=== PATIENT | male | born 1955 | race Caucasian/White ===

== ENCOUNTER → 2016-11-23 | Outpatient (CLI) | payer BC, OTHER ==
[~2016-11-23] VITALS: Ht 182.9 cm; Wt 111.6 kg
[~2016-11-23] MED LIST: ALEVE220 MG PO; AMARYL2 MG PO; APAP500 PO; ASPIR 8181 MG PO; COQ1050 MG PO; CYCLOBENZAPRINE10 MG PO; FLEXERIL PO; LIPITOR10 MG PO; NEURONTIN 300300 M1 PO; TRAMADOL 50 MG50 MG PO; ZYRTEC10 M4 PO
--- NOTE | ~2016-11-23 | HPC ---
[facility] [place] [address] PAIN MANAGEMENT CONSULTATION Name: FRANCISCA PORTER Room #: REG [facility].#: [id number] Admission: 11/23/16 Attend Phys: aSlvatore Garza DO Discharge: Date of : 59 Report #: [id number] THIS REPORT FOR: //name// CC: Neo Garza DATE OF SERVICE: 11/23/2016 REFERRING PHYSICIAN: Neo Mo MD CHIEF COMPLAINT: Low back pain, right lower extremity pain and paresthesias. HISTORY OF PRESENT ILLNESS: As you know, the patient is a very pleasant 61-year-old male who had an acute onset of low back pain, right lower extremity pain that began 11/13/2016. The patient denies injury or trauma that may have led to symptoms. He states the pain has intensified to such a degree that he is unable to go about his activities of daily living. He sought evaluation through his primary care physician, Dr. Neo Mo, who sent the patient for MRI of the lumbar spine, which showed significant changes at the L4-L5 level. He was then referred to the pain clinic for evaluation. The patient indicates pain is continuous, describes the pain as burning, shooting, throbbing, stabbing and tender, places current pain score at 7/10, daily average of 4-7/10, worst pain has been is 10/10. The patient states pain is exacerbated with standing, walking for any length of time, sitting also exacerbates symptoms. He indicates that reclining or repositioning appears to improve pain. He has been referred to our service to discuss treatment options for lumbar radiculopathy secondary to the displacement of a lumbar intervertebral disk. PAST MEDICAL HISTORY: 1. Seasonal allergies. 2. Dyslipidemia. 3. Diabetes mellitus type 2. PAST SURGICAL HISTORY: Tonsillectomy. SOCIAL HISTORY: The patient denies tobacco, IV or illicit drug use. Admits to three alcohol beverages per week. The patient is employed in sales. He is working, not receiving workmen's compensation nor is he trying to obtain disability benefits. He is accompanied by his who was present in room today. REVIEW OF SYSTEMS: Positive for fatigue, weakness, wearing corrective eyewear, numbness and tingling sensations in the right lower extremity, dyslipidemia, and diabetes mellitus type 2, non-insulin dependent. All other review of systems negative per 12-point review of systems other than those listed in the history [address] [address] PAIN MANAGEMENT CONSULTATION Name: FRANCISCA PORTER Room #: REG [facility]#: [id number] Admission: 11/23/16 Attend Phys: Salvatore Garza DO Discharge: Date of : 59 Report #: [id number] of present illness. Pain impact score 50/70 indicating moderate to severe interference of daily activities secondary to pain. ALLERGIES: HYDROCODONE. CURRENT MEDICATIONS: Naproxen 220 mg b.i.d., Tylenol Extra Strength 500 mg 4 times a day, cyclobenzaprine 10 mg once a day, cetirizine 10 mg once a day, aspirin 81 mg per day, Coenzyme Q 100 mg per day, atorvastatin 10 mg per day, Amaryl 2 mg per day, tramadol 50 mg 3 times a day. IMAGING: MRI of the lumbar spine obtained 11/17/2016 shows T12-L1, L1-L2, L2-L3, L3-L4 unremarkable, L4-L5 mild retrolisthesis of L4 and L5, posterior inferior disk with a large right subarticular disk extrusion extending caudally 1.4 cm inferiorly obliterating the right lateral recess at the L5 vertebral body, superimposed broad-based disk bulge with at least moderate narrowing of the left lateral recess, resulting in left L5 radiculopathy. No significant central canal stenosis. L5-S1 degenerative disk disease, facet arthropathy leading to mild to moderate left and moderate right neural foraminal narrowing. PHYSICAL EXAMINATION: VITAL SIGNS: Blood pressure 151/105, pulse 88, respiratory rate 16, unlabored. The patient is 96% on room air. Height 5 feet 11 inches tall, weight 246 pounds, BMI calculated 34.3. GENERAL: Well-developed, well-nourished, well-hydrated, 61-year-old male. He appears his stated age. He is placing current pain score at 7/10. HEENT: Normocephalic and atraumatic. Pupils equal, round, reactive to light. Extraocular muscles are intact. Sclerae nonicteric without injection. NEUROLOGIC: Cranial nerves 2-12 grossly intact. LUNGS: Clear. No wheeze, rhonchi or rales. No respiratory distress. EXTREMITIES: Show no clubbing, no cyanosis, no edema. MUSCULOSKELETAL: Seated straight leg raising positive. Supine straight leg raising positive. Gait is antalgic favoring right lower extremity over left. Stance slightly forward flexed to lumbar spine. Muscle bulk and tone equal and symmetrical in lower extremities. Intact to light touch from L1 through S2 dermatomes. ASSESSMENT: 1. Symptomatic lumbar radiculopathy. 2. Displacement of lumbar intervertebral disk with radiculopathy. 3. Lumbosacral spondylosis with radiculopathy. PLAN: 1. The patient has been referred to our service for evaluation for suspected lumbar radiculopathy. The patient and I spent approximately 20 minutes of time [address] [place] [address] PAIN MANAGEMENT CONSULTATION Name: FRANCISCA PORTER Room #: REG [facility]#: [id number] Admission: 11/23/16 Attend Phys: Salvatore Garza DO Discharge: Date of : 59 Report #: [id number] reviewing his MRI on how the findings on the MRI correlate to the patient's symptoms. We utilized mottling as well as digital visual aids to assist the patient in understanding the findings on his MRI. After this discussion of the MRI and the findings specifically the L4-L5 level, we discussed the treatment options that may provide improvement in symptoms for his lumbar radiculopathy secondary to the displacement of that disk at the L4-L5 level. We discussed the following with the patient today. We discussed with the patient treatment options for lumbar radiculopathy that would include physical therapy, stretching exercises, core strengthening as well as some myofascial release techniques. We discussed medication management with addition of a neuropathic pain medication, low dose opioid for pain control and a consistent nonsteroidal anti-inflammatory. We discussed lumbar epidural injections under fluoroscopic guidance, spinal cord stimulator therapy and surgical options. After reviewing the risks and benefits of all the proposed treatment options, the patient requested a lumbar epidural injection under fluoroscopic guidance to be performed. The patient was advised risks and benefits of a lumbar epidural injection. These risks include but are not necessarily limited to bleeding, bruising, infection, worsening pain, no relief of pain, also risk of temporary or permanent muscle weakness, temporary or permanent nerve damage, post-dural puncture headache and . The patient states understood and wished to proceed. 2. The patient was provided a prescription of tramadol 50 mg dose. He is to take 1 tab p.o. q. 8 hours p.r.n. for pain, given the patient #90 tablets, advised him to take the medication as necessary, not to rely on the medication prophylactically. 3. The patient was provided a refill prescription of Flexeril 10 mg dose 1 tab p.o. t.i.d. p.r.n. muscle spasms, #60, no refills. 4. The patient will return to our clinic in approximately 3 weeks. At that time, review the efficacy of today's epidural injection. [employer] party payer restrictions require that a full month pass between each injection. We will see him back in 3 weeks. If he is doing well, we will delay the next in a series of injections. If he is still experiencing fairly significant pain, we will plan to have the patient to undergo an epidural injection 30 days from today. 5. We wish to thank Dr. Mo for the referral of this patient to our clinic. We will keep you apprised of his response to treatment as we address his lumbar radicular symptoms. Again, we wish to thank you for the opportunity to participate in his care. PROCEDURE NOTE DESCRIPTION OF PROCEDURE: L5-S1 right paramedian epidural steroid injection under fluoroscopic guidance. [address] [address] PAIN MANAGEMENT CONSULTATION Name: FRANCISCA PORTER Magaly Room #: REG [facility]#: [id number] Admission: 11/23/16 Attend Phys: Salvatore Garza DO Discharge: Date of : 59 Report #: [id number] This is the first procedure of the first series that the patient is undergoing. After obtaining written consent, the patient was taken back to the fluoroscopy suite, placed in a prone position with pillow under the abdomen to decrease lumbar lordosis. The skin overlying the lumbosacral area was then prepped and draped in aseptic fashion. The L5-S1 vertebral interspace was then identified by AP fluoroscopy. The skin and subcutaneous tissue overlying the target site of injection was anesthetized with 3 mL 1% lidocaine. A 20-gauge 3.5 inch Tuohy needle was then advanced under fluoroscopic guidance towards the epidural space using a right paramedian approach. The epidural space was identified using loss of resistance to air technique. After negative aspiration for heme or cerebrospinal fluid, a total of 1 mL of Omnipaque was injected. A lumbar epidurogram was confirmed using both AP and lateral fluoroscopy. After negative aspiration for heme or cerebrospinal fluid, 5 mL of solution containing 2 mL 40 mg per mL, 80 mg total triamcinolone, 3 mL lidocaine 1% was injected in increments. Contrast spread was noted at posterior epidural space. The needle was then retracted approximately half way and needle tract flushed with 1 mL of 1% lidocaine. Needle was then removed. There were no apparent sensory or motor deficits in the lower extremity following the procedure. A sterile bandage was placed over the injection site. The heart rate, pulse, oximetry and blood pressure were continuously monitored after the procedure. There were no apparent complications. The patient tolerated the procedure well and was carefully escorted to the recovery room in stable condition. There were no apparent complications. After meeting discharge criteria, the patient was then discharged home. <ELECTRONICALLY SIGNED> By: Salvatore Garza DO 11/30/16 0737 [id number] Salvatore Garza DO /nt
[2016-11-23 12:58] VITALS: BP 151/105
== END | disposition home or self-care (01) ==
LOC: PAIN 07:15
DX: M51.16 Intervertebral disc disorders with radiculopathy, lumbar region (principal); M47.27 Other spondylosis with radiculopathy, lumbosacral region; E78.5 Hyperlipidemia, unspecified; E11.9 Type 2 diabetes mellitus without complications; Z90.49 Acquired absence of other specified parts of digestive tract

== ENCOUNTER → 2016-12-07 | Outpatient (CLI) | payer BC, OTHER ==
[~2016-12-07] VITALS: Ht 180.3 cm; Wt 111.0 kg
--- NOTE | ~2016-12-07 | HPC ---
[facility] [address] [place] [address] PAIN MANAGEMENT CONSULTATION Name: FRANCISCA PORTER Room #: REG [facility].#: [id number] Admission: 12/07/16 Attend Phys: Salvatore Garza DO Discharge: Date of : 59 Report #: [id number] THIS REPORT FOR: //name// CC: Neo Garza DATE OF SERVICE: 12/07/2016 REFERRING PHYSICIAN: Neo Mo MD CHIEF COMPLAINT: Low back pain, right lower extremity pain and paresthesias. HISTORY OF PRESENT ILLNESS: As you know, the patient is a 61-year-old male who returns today in followup visit for medication management. He is indicating his pain is at a level of 1/10. He states the pain is constant, burning, shooting, throbbing, stabbing tenderness and numbness, exacerbated with standing and walking, improves with reclining position and medications. He returns today requesting refill of his gabapentin as he is noting excellent benefit with this medication. He returns requesting this refill in hopes of continuing to experience analgesic benefit. ALLERGIES: HYDROCODONE. CURRENT MEDICATIONS: Tramadol, naproxen, acetaminophen, cyclobenzaprine, Zyrtec, aspirin, Coenzyme Q10, atorvastatin, glimepiride, tramadol, and gabapentin. SOCIAL HISTORY: The patient denies tobacco, IV or illicit drug use. Admits to 3 alcoholic beverages per week. He is employed in sales, working, not receiving workmen's compensation, unaccompanied today. IMAGING: No new imaging available. PHYSICAL EXAMINATION: VITAL SIGNS: Blood pressure 126/91, pulse 80, respiratory rate 16 and unlabored, the patient is 97% on room air, height 5 feet 11 inches tall, weight 244.6 pounds, and BMI calculated 34.1. GENERAL: Well-developed, well-nourished, well-hydrated 61-year-old male. He appears stated age. He is placing pain score today at 1/10. HEENT: Normocephalic, atraumatic. Pupils are equal, round, and reactive to light. Extraocular muscles are intact. EXTREMITIES: Show no clubbing, no cyanosis, and no edema. MUSCULOSKELETAL: Seated straight leg raising negative. Supine straight leg raising remains mildly positive. Fabere's test is negative. Modified gaenslen is positive for low back pain, but no hip pathology. Muscle bulk and tone equal [address] [address] PAIN MANAGEMENT CONSULTATION Name: FRANCISCA PORTER [id number] Admission: 12/07/16 Attend Phys: Salvatore Garza DO Discharge: Date of : 59 Report #: [id number] and symmetrical in lower extremities, intact to light touch from L1 through S2 dermatomes. Ankle clonus negative. Babinski is negative. ASSESSMENT: 1. Symptomatic lumbar radiculopathy. 2. Displacement of lumbar intervertebral disk with radiculopathy. 3. Lumbosacral spondylosis without myelopathy. PLAN: 1. The patient has returned today in followup visit where he is reporting pain score 1/10. Overall, the patient has been doing very well, being able to note excellent benefit with the epidural injection provided on 11/23/2016. He returns today in followup visit to make some changes in medication therapy. He is experiencing mild neuropathic pain at this time and is requesting possible changes in therapy to address these residual symptoms. 2. The patient will be started on gabapentin 300 mg dose 1 tab p.o. bedtime for 3 nights, then 2 tabs p.o. bedtime for 3 nights, then 3 tabs p.o. bedtime for 3 nights, then 1 tab p.o. q.a.m., 3 tabs p.o. at bedtime. He was given #120, 2 refills. The patient was advised anytime during the titration, he notes improvement in symptoms, stabilize at that dose without further escalation. If no improvement in symptoms and no side effects, continue the titration as directed. He was given this prescription with two refills, 3 months' worth of medication assuming good analgesic benefit. 3. The patient will return to our clinic on an as needed basis for possible repeat epidural injection. Otherwise, we will see him back in followup visit for medication management and review. <ELECTRONICALLY SIGNED> By: Salvatore Garza DO 12/20/16 0808 0727 1201 Salvatore Garza DO /nt
[2016-12-07 13:34] VITALS: BP 126/91
== END | disposition home or self-care (01) ==
LOC: PAIN 07:01
DX: M51.16 Intervertebral disc disorders with radiculopathy, lumbar region (principal); M47.817 Spondylosis without myelopathy or radiculopathy, lumbosacral region; Z87.891 Personal history of nicotine dependence